=== PATIENT | female | born 1995 | race Caucasian/White ===

== ENCOUNTER 2021-11-26 05:00 | Inpatient (IN) ==
[2021-11-26] MEDS ORDERED: Azithromycin 500 MG in 0.9 % Sodium Chloride 250 ML IVPB PRN (07:29)
[2021-11-26] MEDS ORDERED: Penicillin G Potassium 5,000,000 UNIT in 0.9 % Sodium Chloride Mini Bag 100 ML IVPB ONE (07:29)
[2021-11-26] MEDS ORDERED: *HR* Nalbuphine 10 MG/ML AMPUL IV PRN (07:29)
[2021-11-26] MEDS ORDERED: Famotidine 20 MG/2 ML VIAL IVP PRN (07:29)
[2021-11-26] MEDS ORDERED: Naloxone 0.4 MG/ML INJ IVP PRN (07:29)
[2021-11-26] MEDS ORDERED: Metoclopramide 10 MG/2 ML VIAL IVP PRN (07:29)
[2021-11-26] MEDS ORDERED: Ondansetron 4 MG/2 ML VIAL IVP PRN (07:29)
[2021-11-26] MEDS: Ringers Solution, Lactated 1,000 ML IVC SCH ×2 (08:24→18:55)
[2021-11-26] MEDS ORDERED: miSOPROStoL 25 MCG TABLET PO PRN (08:33)
[2021-11-26 08:41] LABS: Basophils % 0.2 %; Eosinophils # 0.1 K/mcL (0.0-0.6); Eosinophils % 0.5 %; Hematocrit 39.7 % (35.3-44.9); Hemoglobin 13.1 g/dL (11.5-15.4); Immature Granulocytes % 0.7 % (0-4); Lymphocytes % 21.6 %; Mean Corpuscular Hemoglobin 29.1 pg (28.0-33.3); Mean Corpuscular Volume 88.2 fL (83.0-100.0); Mean Platelet Volume 9.8 fL (9.4-12.4); Monocytes # 0.8 K/mcL (0.0-1.3); Monocytes % 5.8 %; Platelet Count 287 K/mcL (140-400); Red Cell Distribution Width 13.7 % (11.5-14.5); Segmented Neutrophils % 71.2 %
[2021-11-26 09:25] LABS: Influenza A PCR Negative (Negative); Influenza B PCR Negative (Negative); Resp. Syncytial Virus PCR Negative (Negative); SARS-CoV-2 by PCR (In House) Negative (Negative)
[2021-11-26 10:16] LABS: Amphetamine Screen,Urine Negative ng/mL (Cutoff=1000); Barbiturate Screen,Urine Negative ng/mL (Cutoff=200); Benzodiazepines Screen,Urine Negative ng/mL (Cutoff=200); Cannabinoid Screen,Urine Negative ng/mL (Cutoff = 50); Cocaine Screen,Urine Negative ng/mL (Cutoff= 300); Opiate Screen,Urine Negative ng/mL (Cutoff=300); Phencyclidine Screen,Urine Negative ng/mL (Cutoff=25)
[2021-11-26] MEDS ORDERED: EPHEDrine 50 MG/ML VIAL IVP PRN (10:24)
[2021-11-26] MEDS: Penicillin G Potassium 2,500,000 UNIT/105 ML MLS IVPB SCH ×3 (12:48→20:54)
[2021-11-26] MEDS: Oxytocin 20 units/ LR 1000 mL 20 UNIT/1,000 ML BAG IVC SCH (13:17)
[2021-11-27] MEDS: Epidural Premix (fent/bupiv) 110 ML EP SCH ×2 (08:48→11:15)
[2021-11-27] MEDS: Penicillin G Potassium 2,500,000 UNIT/105 ML MLS IVPB SCH ×2 (08:48→10:32)
[2021-11-27] MEDS: Ringers Solution, Lactated 1,000 ML IVC SCH (08:49)
[2021-11-27] MEDS ORDERED: Ibuprofen 600 MG TABLET PO ONE (13:22)
[2021-11-27] MEDS: Oxytocin 20 units/ LR 1000 mL 20 UNIT/1,000 ML BAG IVC SCH (13:49)
[2021-11-27] MEDS ORDERED: Measles/Mumps/Rubella Vacc 0.5 ML VIAL SQ PRN (14:21)
[2021-11-27] MEDS ORDERED: Ondansetron ODT 4 MG TAB.RAPDIS SL PRN (14:21)
[2021-11-27] MEDS ORDERED: Benzocaine/Menthol 56 GM AEROSOL SPRAY TP PRN (14:21)
[2021-11-27] MEDS ORDERED: Oxytocin 20 units/ LR 1000 mL 20 UNIT/1,000 ML BAG IVC SCH (14:21)
[2021-11-27] MEDS ORDERED: Lanolin 7 G OINT...G. TP PRN (14:21)
[2021-11-27] MEDS ORDERED: Rho Immune Globulin 1,500 UNIT SYRINGE IM PRN (14:21)
[2021-11-27] MEDS ORDERED: Ibuprofen 600 MG TABLET PO SCH (16:35)
[2021-11-27] MEDS: Acetaminophen 325 MG TABLET PO SCH (20:40)
[2021-11-27] MEDS: Docusate Oral Soln 100 MG/10 ML UDC PO SCH (22:41)
[2021-11-28 04:13] VITALS: O2SAT 98
[2021-11-28] MEDS: Acetaminophen 325 MG TABLET PO SCH (04:14)
[2021-11-28 07:07] VITALS: BP 120/84; PULSE 89; TEMP 97.9
[2021-11-28] MEDS: Docusate Oral Soln 100 MG/10 ML UDC PO SCH (08:05)
[2021-11-28] MEDS ORDERED: Prenatal Vit/FA 1 EACH TABLET PO SCH (09:00)
== END 2021-11-28 14:02 | disposition home or self-care (01) | DRG 806 ==
LOC: 1NENULAB 07:08 → 1NENUOBS 11-27 14:19
PROVIDERS: ADMIT Obstetrics & Gynecology; ATTEND Obstetrics & Gynecology